=== PATIENT | male | born 1990 | race Hispanic/Latino ===

== ENCOUNTER 2022-10-19 10:25 | Emergency (ER) | payer SELFPAY ==
[~2022-10-19] VITALS: Ht 167.6 cm; Wt 75.0 kg
[2022-10-19 10:32] VITALS: BP 140/94
[2022-10-19 10:45] VITALS: BP 138/90
[2022-10-19 10:46] LABS: HEMATOCRIT 42.8 % (39.0-50.0); HEMOGLOBIN 14.8 g/dl (14.0-18.0); IMMATURE GRANULOCYTES 0.1 % (0.0-5.0); MEAN CELL VOLUME 91.3 fL CALC (80.0-100.0); MEAN CORPUSCULAR HGB 31.6 pG CALC (26.0-32.0); MEAN CORPUSCULAR HGB CONC 34.6 g/dL CAL (32.0-36.0); NEUT# 10.75 thou/uL (1.82-7.42); RED BLOOD COUNT 4.69 mill/uL (4.70-6.10); RED CELL DISTRI WIDTH 11.8 % (11.5-15.5)
[2022-10-19 11:00] VITALS: BP 151/95
[2022-10-19 11:10] LABS: ANION GAP 15 (6-22 (CALC)); BUN 11 mg/dL (9-20); BUN/CREATININE RATIO 12 (12-20 (CALC)); CARBON DIOXIDE 25 mmol/l (22-30); CHLORIDE 101 mmol/l (95-108); CREATININE 0.9 mg/dL (0.7-1.3); GFR FOR AFR.AMER. > 60 ML/MIN (>=60 (CALC)); GFR OTHER RACES > 60 ML/MIN (>=60 (CALC)); POTASSIUM 3.5 mmol/l (3.5-5.1); SODIUM 138 mmol/l (137-146)
[2022-10-19] MEDS ORDERED: ZPAK PO (11:15)
[2022-10-19 11:16] VITALS: BP 156/88
[2022-10-19 11:30] VITALS: BP 143/87
[2022-10-19 11:45] VITALS: BP 143/87
== END 2022-10-19 11:53 | disposition home or self-care (01) | DRG 153 ==
LOC: ED 10:25
PROVIDERS: Family Medicine
DX: J06.9 Acute upper respiratory infection, unspecified (principal); I10 Essential (primary) hypertension; Z20.822 Contact with and (suspected) exposure to COVID-19